=== PATIENT | female | born 1990 | race Caucasian/White ===

== ENCOUNTER 2016-11-20 12:45 | Emergency (ER) | payer MEDICAID ==
[2016-11-20 13:06] VITALS: BP 109/87
[2016-11-20] MEDS ORDERED: Albuterol Nebulizer 2.5mg/3mL HHN ONE (13:35)
--- NOTE | 2016-11-20 13:35 | ED Physician Chart ---
Chief Complaint/HPI - Patient Information Date Seen:: 11/20/16 Time Seen:: 13:15 Chief Complaint:: chills,fever, cough and vomiting History of Present Illness:: Patient was well last night. This morning she developed the worst headache of her life. She describes the headache as feeling like her head is being struck by a hammer. She vomited 7 time. She had no diarrhea. A nonproductive cough started this morning. He has back pain she coughs. She is also with shaking chills. Patient did not receive any influenza vaccination this season. Allergies:: Allergies Allergy/AdvReac Type Severity Reaction Status Date / Time No Known Allergies Allergy Verified 07/04/16 17:32 Vitals:: Vital Signs - 8 hr 11/20/16 11/20/16 13:06 13:07 Temp 100.9 F HR 135 RR 16 BP 109/87 109/87 O2 Sat % 98 Historian:: Patient Review:: Nurse's Note Reviewed Review of Systems - Review of Systems General/Constitutional: Fever, Chills Skin: No skin lesions Head: Headache Eyes: No loss of vision ENT: No earache Neck: No swelling, No stiffness Cardio Vascular: No chest pain Pulmonary: Cough G/U: No dysuria Musculoskeletal: Other (pleuritic back pain when she coughs) Endocrine: No polyuria, No polydipsia Psychiatric: No prior psych history, No depression, No anxiety Hematopoietic: No bruising Allergic/Immuno: No urticaria Neurological: No syncope, No focal symptoms, Weakness Family Medical History - Family Member Mother History Unknown: Yes Ethnicity: Living Status: Still Living Hx Family Cancer: No Hx Family Congestive Heart Failure: No Hx Family Hypertension: No Hx Family Stroke: No Hx Family Diabetes: No Hx Family Seizures: No Hx Family Dementia: No Grandmother History Unknown: Yes Ethnicity: Living Status: Still Living Hx Family Cancer: No Hx Family Congestive Heart Failure: No Hx Family Hypertension: No Hx Family Diabetes: No Hx Family Dementia: No Physical Exam - Physical Examination General/Constitutional: Well-developed, well-nourished, Alert, No distress Other Gen/Cons comments:: shaking chills Head: Atraumatic Eyes: Lids, conjuctiva normal, PERRL Skin: Nl inspection ENMT: External ears, nose nl, TM canals nl, Nasal exam nl Other ENMT comments:: 2 out of 4 diffuse erythema of pharynx; no tonsillar swelling or exudate. Neck: No nuchal rigidity Other Neck comments:: 90 forward flexion of the neck Respiratory: Nl effort/Exclusion, Clear to Auscultation, No Wheeze/Rhonchi/Rales Cardio Vascular: RRR, No murmur, gallop, rubs, NL S1 S2 GI: No tenderness/rebounding/guarding, No organomegaly, No hernia, Normal BS's, Nondistended, No mass/bruits, No McBurney tenderness : No CVA tenderness Extremities: No tenderness or effusion, Normal digits & nails Neuro/Psych: Alert/oriented Misc: Normal back Labs/Radiology/EKG Results - Lab Results Results: Laboratory Results - last 24 hr 11/20/16 13:45 Influenza A (Rapid) NEG FOR INF A Influenza B (Rapid) NEG FOR INF B Assessment - Assessment General Assessment: Patient had much less coughing after the albuterol by hand-held nebulizer. Patient informed that antibiotics are not effective for viral infections. ED Septic Shock - . Is Septic Shock (SBP<90, OR Lactate>4 mmol\L) present?: No - <6hrs of presentation: Vital Signs: Vital Signs - 8 hr 11/20/16 11/20/16 13:06 13:07 Temp 100.9 F HR 135 RR 16 BP 109/87 109/87 O2 Sat % 98 Reassessment (Disposition) - Reassessment Reassessment Condition:: Improved - Diagnosis Diagnosis:: Acute viral syndrome - Aftercare/Follow up Instructions Aftercare/Follow-Up Instructions:: Refer to Discharge Instructions Medication Prescribed:: Albuterol metered-dose inhaler to take 2 puffs every 4 hours as necessary; Zofran 4 mg oral disintegrating tablet #10 to take one every 4-6 hours as necessary - Patient Disposition Discharge/Transfer:: Home Condition at Disposition:: Stable, Improved
[2016-11-20] MEDS: Albuterol Nebulizer 2.5mg/3mL HHN STA (13:42)
== END 2016-11-20 15:42 | disposition home or self-care (01) ==
LOC: ER 12:45
DX: B34.9 Viral infection, unspecified (principal)
CPT/HCPCS: 87804-TC; 94640; J7613; Z7502

== ENCOUNTER 2017-03-25 00:10 | Emergency (ER) | payer MEDICAID ==
[2017-03-25] MEDS ORDERED: Albuterol Nebulizer 2.5mg/3mL HHN STA (00:43)
[2017-03-25] MEDS ORDERED: Albuterol Nebulizer 2.5mg/3mL HHN ONE (00:47)
--- NOTE | 2017-03-25 00:49 | ED Physician Chart ---
ED Chief Complaint/HPI - Patient Information Date Seen:: 03/25/17 Time Seen:: 00:44 Chief Complaint:: cough History of Present Illness:: pt is 16wks gravid w hx. hx of 3 prior misscarriages. she has a ob dr and has been going regularly. has had some crampy pains but has talked to her Ob about this and it is unchanged..Ob says its just round lig stretch pains. pt here today because she has had a cough x 3 wks. she has a hx of asthma and uses albuterol 1puff today - 3 puffs yesterday. she worries about the baby when taking any meds and tries to avoid most. has had fevers last yest 101. cough is prod of clear to green tint sputum. cough paroxysms cause spitting up. feels worse today. pt feels anxious also and does have panic attack hx. is home w other 2 kids and is supportive. has safe home environment. Allergies:: Allergies Allergy/AdvReac Type Severity Reaction Status Date / Time No Known Allergies Allergy Verified 07/04/16 17:32 Vitals:: Vital Signs - 8 hr 03/25/17 00:15 Temp 97.5 F HR 97 RR 18 BP 110/65 O2 Sat % 97 Historian:: Patient ED Review of Systems - Review of Systems General/Constitutional: No fever, No chills, No weight loss, No weakness, No diaphoresis, No edema, No loss of appetite Skin: No skin lesions, No rash, No bruising Head: No headache, No light-headedness Eyes: No loss of vision, No pain, No diplopia ENT: No earache, No nasal drainage, No sore throat, No tinnitus Neck: No neck pain, No swelling, No thyromegaly, No stiffness, No mass noted Cardio Vascular: No chest pain, No palpitations, No PND, No orthopnea, No edema Pulmonary: No SOB, Cough, Sputum, Wheezing GI: No nausea, No vomiting, No diarrhea, No pain, No melena, No hematochezia, No constipation, No hematemesis G/U: No dysuria, No frequency, No hematuria Musculoskeletal: No bone or joint pain, No back pain, No muscle pain, Other (no leg pains or edema) Endocrine: No polyuria, No polydipsia Psychiatric: No prior psych history, No depression, No anxiety, No suicidal ideation Hematopoietic: No bruising, No lymphadenopathy Allergic/Immuno: No urticaria, No angioedema Neurological: No syncope, No focal symptoms, No weakness, No paresthesia, No headache, No seizure, No dizziness, No confusion, No vertigo ED Past Medical History - Past Medical History Past Medical History: Asthma/COPD Psychiatricy History: Depression, Other (panic attacks) Medication: Reviewed Family Medical History - Family Member Mother History Unknown: Yes Ethnicity: Living Status: Still Living Hx Family Cancer: No Hx Family Congestive Heart Failure: No Hx Family Hypertension: No Hx Family Stroke: No Hx Family Diabetes: No Hx Family Seizures: No Hx Family Dementia: No Grandmother History Unknown: Yes Ethnicity: Living Status: Still Living Hx Family Cancer: No Hx Family Congestive Heart Failure: No Hx Family Hypertension: No Hx Family Diabetes: No Hx Family Dementia: No ED Physical Exam - Physical Examination General/Constitutional: Awake, Well-developed, well-nourished, Alert, No distress, GCS 15, Non-toxic appearing, Ambulatory Head: Atraumatic Eyes: Lids, conjuctiva normal, PERRL, EOMI Skin: Nl inspection, No rash, No skin lesions, No ecchymosis, Well hydrated, No lymphadenopathy ENMT: External ears, nose nl, Nasal exam nl, Lips, teeth, gums nl Neck: Nontender, Full ROM w/o pain, No JVD, No nuchal rigidity, No bruit, No mass, No stridor Respiratory: Nl effort/Exclusion, Clear to Auscultation Other Respiratory comments:: mild wheezing. no dyspnea. dry cough paroxysms seen/heard..nonproductive of sputum in ed. Cardio Vascular: RRR, No murmur, gallop, rubs, NL S1 S2 GI: No tenderness/rebounding/guarding, No organomegaly, No hernia, Normal BS's, Nondistended, No mass/bruits, No McBurney tenderness : No CVA tenderness Extremities: No tenderness or effusion, Full ROM, normal strength in all extremities, No edema, Normal digits & nails Other Extremities comments:: no leg edema or tndrness. no stuart sx. Neuro/Psych: Alert/oriented, DTR's symmetric, Normal sensory exam, Normal motor strength, Judgement/insight normal, Mood normal, Normal gait, No focal deficits Misc: normal gait, Normal back, No paraspinal tenderness ED Septic Shock - . Is Septic Shock (SBP<90, OR Lactate>4 mmol\L) present?: No - <6hrs of presentation: Vital Signs: Vital Signs - 8 hr 03/25/ 00:15 Temp 97.5 F HR 97 RR 18 BP 110/65 O2 Sat % 97 ED Reassessment (Disposition) - Reassessment Reassessment:: pt much better after neb tx. paroxysms relieved. dw pt plan. pt wants work note for tonight only (offered all wk) pros/cons of cxr dw pt. at 16wks preg... advised pt increase albuterol use up to 2 puffs q 4hrs. rx abx amox , albuterol mdi see pmd for rechk this week. return if severe sob...or pelvic pains/worse. Reassessment Condition:: Improved - Diagnosis Diagnosis:: 1 16 weeks gravid 2 asthma exacerbation 3 bronchitis - Aftercare/Follow up Instructions Aftercare/Follow-Up Instructions:: Counseled pt regarding lab results/diagnosis & need follow up Medication Prescribed:: amox, albuterol - Patient Disposition Discharge/Transfer:: Home Condition at Disposition:: Improved
== END 2017-03-25 01:20 | disposition home or self-care (01) ==
LOC: ER 00:10
DX: O99.512 Diseases of the respiratory system complicating pregnancy, second trimester (principal); J45.901 Unspecified asthma with (acute) exacerbation; Z3A.16 16 weeks gestation of pregnancy
CPT/HCPCS: 94640; J0456; J7613; Z7502

== ENCOUNTER 2017-04-03 04:52 | Emergency (ER) | payer MEDICAID ==
--- NOTE | 2017-04-03 05:16 | ED Physician Chart ---
ED Chief Complaint/HPI - Patient Information Date Seen:: 04/03/17 Time Seen:: 05:10 Chief Complaint:: vaginal bleeding History of Present Illness:: Patient noted slight blood on the toilet paper when she wiped after urination at 0300. Patient is 17-1/2 weeks . She has lower abdominal pain but she 's had this same pain for her entire . Patient is 6 para 2 AB 3 Allergies:: Allergies Allergy/AdvReac Type Severity Reaction Status Date / Time No Known Allergies Allergy Verified 07/04/16 17:32 Vitals:: Vital Signs - 8 hr 04/03/17 04:52 Temp 97.1 F HR 82 RR 18 BP 101/48 O2 Sat % 98 Historian:: Patient ED Review of Systems - Review of Systems General/Constitutional: No fever, No chills Skin: No skin lesions Head: No headache Eyes: No loss of vision ENT: No earache Neck: No neck pain, No swelling Cardio Vascular: No chest pain, No palpitations Pulmonary: No SOB GI: No nausea, No vomiting G/U: No dysuria [employer]aton Teacher: Abnormal vaginal bleeding Musculoskeletal: No bone or joint pain Endocrine: No polyuria Psychiatric: No prior psych history, No depression Hematopoietic: No bruising ED Past Medical History - Past Medical History Past Medical History: Asthma/COPD Family History: Diabetes Melitus, HTN Social History: Non Smoker, No Alcohol Surgical History: None Psychiatricy History: None Medication: Reviewed Family Medical History - Family Member Mother History Unknown: Yes Ethnicity: Living Status: Still Living Hx Family Cancer: No Hx Family Congestive Heart Failure: No Hx Family Hypertension: No Hx Family Stroke: No Hx Family Diabetes: No Hx Family Seizures: No Hx Family Dementia: No Grandmother History Unknown: Yes Ethnicity: Living Status: Still Living Hx Family Cancer: No Hx Family Congestive Heart Failure: No Hx Family Hypertension: No Hx Family Diabetes: No Hx Family Dementia: No ED Physical Exam - Physical Examination General/Constitutional: Well-developed, well-nourished, Alert, No distress Head: Atraumatic Eyes: Lids, conjuctiva normal Skin: Nl inspection ENMT: External ears, nose nl Neck: No nuchal rigidity Respiratory: Nl effort/Exclusion, Clear to Auscultation Cardio Vascular: RRR GI: No organomegaly, No hernia, Normal BS's Other GI comments:: Mild lower abdominal tenderness : No CVA tenderness Extremities: No tenderness or effusion Neuro/Psych: No focal deficits Misc: No paraspinal tenderness ED Labs/Radiology/EKG Results - Lab Results Comments:: Laboratory Results - last 24 hr 04/03/17 04/03/17 04/03/17 05:00 05:21 05:21 WBC 7.8 RBC 3.60 L Hgb 10.9 L Hct 31.6 L MCV 87.8 MCH 30.2 MCHC Differential 34.4 RDW 12.9 Plt Count 231 MPV 8.7 Neutrophils % 68.9 Lymphocytes % 22.0 Monocytes % 6.1 Eosinophils % 2.5 Basophils % 0.5 Sodium Potassium Chloride Carbon Dioxide Anion Gap BUN Creatinine Est GFR ( Amer) Est GFR (Non-Af Amer) BUN/Creatinine Ratio Glucose Calcium Beta HCG, Quant 43757 Urine Source CLEAN C Urine Color YELLOW Urine Clarity HAZY Urine pH 5.5 Ur Specific Foster >= 1.030 Urine Protein NEGATIVE Urine Glucose (UA) NEGATIVE Urine Ketones TRACE Urine Blood NEGATIVE Urine Nitrate NEGATIVE Urine Bilirubin NEGATIVE Urine Urobilinogen 0.2 Ur Leukocyte Esterase NEGATIVE Urine RBC NONE SEEN Urine WBC 0-2 Ur Epithelial Cells MODERATE Urine Bacteria NONE SEEN 04/03/17 05:21 WBC RBC Hgb Hct MCV MCH MCHC Differential RDW Plt Count MPV Neutrophils % Lymphocytes % Monocytes % Eosinophils % Basophils % Sodium 137 Potassium 3.1 L Chloride 107 Carbon Dioxide 24.2 Anion Gap 8.9 BUN 6 L Creatinine 0.5 L Est GFR ( Amer) > 60.0 Est GFR (Non-Af Amer) > 60.0 BUN/Creatinine Ratio 12.0 Glucose 94 Calcium 8.6 Beta HCG, Quant Urine Source Urine Color Urine Clarity Urine pH Ur Specific Foster Urine Protein Urine Glucose (UA) Urine Ketones Urine Blood Urine Nitrate Urine Bilirubin Urine Urobilinogen Ur Leukocyte Esterase Urine RBC Urine WBC Ur Epithelial Cells Urine Bacteria ED Assessment - Assessment General Assessment: Patient left AGAINST MEDICAL ADVICE before the ultrasound was done 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 ED Septic Shock - . Is Septic Shock (SBP<90, OR Lactate>4 mmol\L) present?: No - <6hrs of presentation: Vital Signs: Vital Signs - 8 hr 04/03/17 04:52 Temp 97.1 F HR 82 RR 18 BP 101/48 O2 Sat % 98 ED Reassessment (Disposition) - Reassessment Reassessment Condition:: Unchanged - Diagnosis Diagnosis:: Threatened AB - Patient Disposition Discharge/Transfer:: Against Medical Advice Condition at Disposition:: Stable, Unchanged ED Discharge Plan - Patient Disposition Admit/Discharge/Transfer: AGAINST MEDICAL ADVICE
[2017-04-03 05:32] LABS: % BASOPHILS 0.5 % (0.0-2.0); % EOSINOPHILS 2.5 % (0.0-5.0); % MONOCYTES 6.1 % (2.0-10.0); % NEUTROPHILS 68.9 % (40.0-80.0); HEMATOCRIT 31.6 % (41.0-60); HEMOGLOBIN 10.9 gm/dL (12-16); MEAN CELL VOLUME 87.8 fl (81-100); MEAN CORPUSCULAR HEMOGLOBIN 30.2 pg (27.0-31.0); MEAN CORPUSCULAR HGB CONC 34.4 pg (28.0-36.0); MEAN PLATELET VOLUME 8.7 fl; NEUTROPHILE ABSOLUTE 5.4 Th/cmm (1.8-8.0); PLATELET COUNT 231 Th/cmm (150-400); RED CELL DISTRIBUTION WIDTH 12.9 % (11.5-20.0); WHITE BLOOD COUNT 7.8 Th/cmm (4.8-10.8)
[2017-04-03 05:41] LABS: URINE BILIRUBIN NEGATIVE (NEGATIVE); URINE BLOOD NEGATIVE (NEGATIVE); URINE GLUCOSE (UA) NEGATIVE (NEGATIVE); URINE KETONE TRACE mg/dL (NEGATIVE); URINE PH 5.5 (4.6 - 8.0); URINE PROTEIN NEGATIVE (NEGATIVE); URINE UROBILINOGEN 0.2 E.U./dL (0.2 - 1.0)
[2017-04-03 05:45] LABS: URINE COLOR YELLOW
[2017-04-03 05:46] LABS: URINE RBC NONE SEEN /hpf (0-5); URINE WBC 0-2 /hpf (0-5)
[2017-04-03 05:47] LABS: URINE BACTERIA NONE SEEN /hpf (NONE SEEN); URINE EPITHELIAL CELLS MODERATE /lpf (FEW)
[2017-04-03 06:05] LABS: ANION GAP 8.9 (7.0-16.0); BUN - UREA NITROGEN 6 mg/dL (7-25); CALCIUM SERUM 8.6 mg/dL (8.6-10.3); CARBON DIOXIDE 24.2 mEq/L (21.0-31.0); CHLORIDE 107 mEq/L (98-107); CREATININE - SERUM 0.5 mg/dL (0.6-1.2); GLUCOSE 94 mg/dL (70-105); POTASSIUM SERUM 3.1 mEq/L (3.5-5.1); SODIUM SERUM 137 mEq/L (136-145)
== END 2017-04-03 06:36 | disposition left against medical advice (07) ==
LOC: ER 04:52
DX: O20.0 Threatened abortion (principal); J45.909 Unspecified asthma, uncomplicated; J44.1 Chronic obstructive pulmonary disease with (acute) exacerbation; Z3A.17 17 weeks gestation of pregnancy
CPT/HCPCS: 36415-UA; 80048-TC; 81001-TC; 84702-TC; 85025-TC; 86850-TC; 86900-TC; 86901-TC; Z7502

== ENCOUNTER 2017-04-07 23:20 | Emergency (ER) | payer MEDICAID ==
--- NOTE | 2017-04-08 00:13 | ED Physician Chart ---
ED Chief Complaint/HPI - Patient Information Date Seen:: 04/08/17 Time Seen:: 00:02 Chief Complaint:: Abdominal pain History of Present Illness:: 26 yo female is currently 18 weeks gestation. She has diffuse abdominal pain for 5 days, constant, range 2-8/9, dull pain, radiating to back and sometimes to bilateral lower extremities. Lying on the left side and heating pad on the abdomen would relieve the pain. Nausea and vomiting for 5 days. Previously, she had nausea and vomiting but stopped at 10 weeks. No appetite. Patient does feel movements. Last time she saw [facility] 1.5 weeks ago and her next appointment will be on 04/13/17. Patient had mild vaginal spotting 5 days ago. Allergies:: Allergies Allergy/AdvReac Type Severity Reaction Status Date / Time No Known Allergies Allergy Verified 04/07/17 23:36 Vitals:: Vital Signs - 8 hr 04/07/17 23:30 Temp 98.3 F HR 85 RR 97 BP 97/53 O2 Sat % 98 ED Past Medical History - Past Medical History Past Medical History: Other (Asthma) Family History: Diabetes Melitus, HTN Social History: Non Smoker, No Alcohol, No Drug Use Surgical History: None Psychiatricy History: None Family Medical History - Family Member Mother History Unknown: Yes Ethnicity: Living Status: Still Living Hx Family Cancer: No Hx Family Congestive Heart Failure: No Hx Family Hypertension: No Hx Family Stroke: No Hx Family Diabetes: No Hx Family Seizures: No Hx Family Dementia: No Grandmother History Unknown: Yes Ethnicity: Living Status: Still Living Hx Family Cancer: No Hx Family Congestive Heart Failure: No Hx Family Hypertension: No Hx Family Diabetes: No Hx Family Dementia: No ED Physical Exam - Physical Examination Head: Atraumatic Eyes: Lids, conjuctiva normal, PERRL, EOMI Skin: No rash Neck: Nontender Cardio Vascular: RRR, No murmur, gallop, rubs, NL S1 S2 Other GI comments:: Soft, tenderness lower quadrant, no rebound tenderness, bowel sound hypoactive. Extremities: Full ROM Neuro/Psych: Normal sensory exam, Normal motor strength ED Labs/Radiology/EKG Results - Lab Results Comments:: Na 132 K 3.1 UA: Leuk esterase trace, WBC 2-5 - Radiology Results Results: OB ultrasound was normal ED Assessment - Assessment General Assessment: 18 gestation weeks, abdominal pain Assessment/Comments:: Abdominal pain UTI Hyponatremia Plan: 1. Rocephin 1gm IV x 1 2. NS 1000mL bolus 3. KCL 20mEq PO x 1 4. Follow up [facility] [employer] ED Septic Shock - . Is Septic Shock (SBP<90, OR Lactate>4 mmol\L) present?: No - <6hrs of presentation: Vital Signs: Vital Signs - 8 hr 04/07/17 23:30 Temp 98.3 F HR 85 RR 97 BP 97/53 O2 Sat % 98 ED Reassessment (Disposition) - Reassessment Reassessment Condition:: Improved - Patient Disposition Discharge/Transfer:: Follow up [facility] [facility] Condition at Disposition:: Stable ED Discharge Plan - Patient Disposition Admit/Discharge/Transfer: PT DISCHARGED HOME Condition at Disposition: Improved Instructions: Urinary Tract Infection, [id number], Urinary Tract Infection in Additional Instructions: Follow up with primary care physician and OBGYN as soon as possible. Return to ED if symptoms worsen. Seek hospital with OB services if possible. Forms: Work Release Form
[2017-04-08 00:27] LABS: % BASOPHILS 0.4 % (0.0-2.0); % EOSINOPHILS 1.8 % (0.0-5.0); % LYMPHOCYTES 32.5 % (20.0-50.0); % NEUTROPHILS 54.3 % (40.0-80.0); HEMATOCRIT 32.2 % (41.0-60); HEMOGLOBIN 11.1 gm/dL (12-16); MEAN CELL VOLUME 87.5 fl (81-100); MEAN CORPUSCULAR HEMOGLOBIN 30.2 pg (27.0-31.0); MEAN CORPUSCULAR HGB CONC 34.6 pg (28.0-36.0); MEAN PLATELET VOLUME 8.8 fl; NEUTROPHILE ABSOLUTE 2.2 Th/cmm (1.8-8.0); PLATELET COUNT 206 Th/cmm (150-400); RED BLOOD COUNT 3.68 Mil/cmm (3.80-5.10); RED CELL DISTRIBUTION WIDTH 12.8 % (11.5-20.0)
[2017-04-08 00:37] LABS: URINE BLOOD NEGATIVE (NEGATIVE); URINE GLUCOSE (UA) NEGATIVE (NEGATIVE); URINE KETONE 15 mg/dL (NEGATIVE); URINE PROTEIN TRACE mg/dL (NEGATIVE)
[2017-04-08 00:54] LABS: URINE COLOR YELLOW
[2017-04-08 00:58] LABS: URINE BACTERIA MODERATE /hpf (NONE SEEN); URINE BILIRUBIN SMALL (NEGATIVE); URINE EPITHELIAL CELLS MODERATE /lpf (FEW); URINE RBC 0-2 /hpf (0-5)
[2017-04-08 01:01] LABS: ALB/GLOB RATIO 1.1 (1.0-1.8); ALKALINE PHOSPHATASE 69 U/L (34-104); ANION GAP 9.5 (7.0-16.0); BILIRUBIN,TOTAL 0.5 mg/dL (0.3-1.0); BUN - UREA NITROGEN 7 mg/dL (7-25); BUN/CREATININE RATIO 17.5; CALCIUM SERUM 8.5 mg/dL (8.6-10.3); CARBON DIOXIDE 21.6 mEq/L (21.0-31.0); CHLORIDE 104 mEq/L (98-107); CREATININE - SERUM 0.4 mg/dL (0.6-1.2); GLUCOSE 104 mg/dL (70-105); POTASSIUM SERUM 3.1 mEq/L (3.5-5.1); SGOT 15 U/L (13-39); SGPT/ALT 9 U/L (7-52); SODIUM SERUM 132 mEq/L (136-145)
[2017-04-08] MEDS ORDERED: Potassium Chloride 20 mEq ER Tab PO ONE ×2 (01:41→01:45)
[2017-04-08] MEDS ORDERED: Sodium Chloride 0.9% 1,000 ML IV SCH ×2 (01:43→01:45)
[2017-04-08] MEDS ORDERED: cefTRIAXone 1 GM in Sodium Chloride 0.9% 50 ML IV ONE (01:45)
--- NOTE | 2017-04-08 08:18 | Diagnostic Imaging Report ---
Ultrasound OB, greater than 14 weeks HISTORY: female with abdominal pain COMPARISON: None Technique: Longitudinal and transverse sonographic sector images of the pelvis were obtained transabdominally. Findings: A single live intrauterine gestation is seen variable presentation. The heart rate was 187 bpm. Movement and breathing activity was demonstrated during the examination. There is suboptimal evaluation of the cervix. The cervix appears to be closed. Accurate cervical measurements measure it at this time. The amniotic fluid index is grossly within normal limits. The biparietal diameter measures 4.5 cervical spine gestational age of 19 weeks and 4 days. The head circumference measures 15.1 cm corresponding gestational age of 18 weeks and 1 day The Abdominal circumference measures 15.5 cm corresponding gestational age of 20 weeks and 5 days The femoral length measures 2.9 cm corresponding gestational age of 19 weeks and 0 days. Estimated weight is 310 g +/-46 g. The estimated gestational age based on sonographic parameters is 19 weeks and 0 days +/-2 weeks. The placenta appears to be anterior in position grade 1. IMPRESSION: Single live intrauterine gestation with estimated gestational age of 19 weeks and 0 days +/-2 weeks based on sonographic parameters. Given clinical history, continued short-term follow-up ultrasound is recommended.
== END 2017-04-08 03:30 | disposition home or self-care (01) ==
LOC: ER 23:20
DX: O26.892 Other specified pregnancy related conditions, second trimester (principal); R10.9 Unspecified abdominal pain; J45.909 Unspecified asthma, uncomplicated
CPT/HCPCS: 99285; 96365; 36415; 83605; 85025; 81001; 80053; 87040; 76802; J0696; J7030